=== PATIENT | male | born 1945 | race Caucasian/White ===

== ENCOUNTER → 2023-07-16 06:34 | Day surgery (SDC) | payer MEDICARE, OTHER, SELFPAY | LOC: GI 06:34 | PROVIDERS: ATTENDING PHYSICIAN Specialist | DX: Z12.11 Encounter for screening for malignant neoplasm of colon (principal); K63.5 Polyp of colon; K57.30 Diverticulosis of large intestine without perforation or abscess without bleeding; Z83.719 Family history of colon polyps, unspecified | CPT/HCPCS: 45385; 88305 ==

== ENCOUNTER 2025-02-03 06:55 | Outpatient (RCR) | payer MEDICARE, OTHER, SELFPAY | END 2025-02-03 23:59 | disposition home or self-care (01) | LOC: RPT 06:55 | PROVIDERS: ATTENDING PHYSICIAN Orthopaedic Surgery; FAMILY PHYSICIAN Physician Assistant | DX: M17.0 Bilateral primary osteoarthritis of knee (principal); Z73.6 Limitation of activities due to disability; M62.81 Muscle weakness (generalized); M54.9 Dorsalgia, unspecified | CPT/HCPCS: 97110; 97162 ==

== ENCOUNTER 2025-02-15 08:33 | Outpatient (RCR) | payer MEDICARE, OTHER, SELFPAY | END 2025-02-15 12:56 | disposition home or self-care (01) | LOC: RPT 08:33 | PROVIDERS: ATTENDING PHYSICIAN Orthopaedic Surgery; FAMILY PHYSICIAN Physician Assistant | DX: M17.0 Bilateral primary osteoarthritis of knee (principal); Z73.6 Limitation of activities due to disability; M62.81 Muscle weakness (generalized); M54.9 Dorsalgia, unspecified | CPT/HCPCS: 97110; 97112 ==